=== PATIENT | male | born 1955 | race African-American/Black ===

== ENCOUNTER 2022-08-01 20:40 | Emergency (ER) | payer SELFPAY ==
[~2022-08-01] VITALS: Ht 180.3 cm; Wt 90.6 kg
[2022-08-01 21:22] LABS: Urine WBC None Seen /hpf (0 - 3)
[2022-08-01 21:31] LABS: Urine Bacteria NONE SEEN /hpf (None Seen); Urine Blood 1+ /uL (Negative); Urine Specific Gravity 1.003 (1.001-1.035)
[2022-08-01 23:49] VITALS: BP 152/107
[2022-08-02 00:15] LABS: Basophils # (auto) 0 10 ^3/uL (0-0.2); Basophils % (auto) 0.4 % (0.0-2.0); Eosinophils # (auto) 0.1 10 ^3/uL (0-0.8); Eosinophils % (auto) 1.6 % (0.0-7.0); Hematocrit 44.4 % (41.0-53.0); Hemoglobin 15.3 g/dL (13.5-17.5); Lymphocytes % (auto) 34.8 % (10.0-50.0); Mean Corpuscular Hgb Conc. 34.4 g/dL (32.0-36.0); Mean Corpuscular Volume 90.2 fL (80.0-100.0); Monocytes # (auto) 0.7 10 ^3/uL (0-1.3); Monocytes % (auto) 8.2 % (0.0-12.0); Neutrophils # (auto) 4.7 10 ^3/uL (1.6-8.6); Nucleated Red Blood Cells % 0.1 %; Red Blood Cells 4.93 10^6/uL (4.5-5.90); Red Cell Distribution Width 13.4 % (11.8-14.3); White Blood Cell 8.5 10^3/uL (4.4-10.8)
[2022-08-02 00:35] LABS: Albumin 3.8 g/dL (3.4-5.0); BUN/Creatinine Ratio 15.9 (10.0-20.0); Calcium 9.2 mg/dL (8.5-10.1); Potassium 3.5 mmol/L (3.5-5.1)
[2022-08-02 00:44] LABS: Bilirubin, Total 0.4 mg/dL (0.2-1.0); Total Protein 7.8 g/dL (6.4-8.2)
[2022-08-02] MEDS ORDERED: AZITTAB PO (02:52)
[2022-08-02] MEDS ORDERED: PRED20TA2 PO (02:52)
== END 2022-08-02 03:10 | disposition home or self-care (01) ==
LOC: ER 20:40
DX: J06.9 Acute upper respiratory infection, unspecified (principal); Z20.822 Contact with and (suspected) exposure to COVID-19
CPT/HCPCS: 36415; 71046; 80053; 81001; 84484; 85025; 87426